=== PATIENT | female | born 1985 | race Hispanic/Latino ===

== ENCOUNTER 2016-12-13 23:52 | Observation (INO) | payer SELFPAY ==
[2016-12-14 00:11] VITALS: TEMP 98.3
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
[2016-12-14 06:50] VITALS: O2SAT 99
[2016-12-14 06:52] VITALS: BP 101/62; PULSE 78; RESP 14
== END 2016-12-14 06:28 | disposition home or self-care (01) ==
LOC: H.ER 23:52 → H.EROBSV 12-14 00:25
PROVIDERS: ADMIT Emergency Medicine; ATTEND Emergency Medicine
DX: F10.129 Alcohol abuse with intoxication, unspecified (principal); Y90.6 Blood alcohol level of 120-199 mg/100 ml
CPT/HCPCS: 36415; 96372; 99283; G0378; G0480; J1630; J2060